=== PATIENT | female | born 1945 | race Caucasian/White ===

== ENCOUNTER → 2016-11-28 | Outpatient (REF) ==
[~2016-11-28] MED LIST: ASPIRIN 32325 MG/TAB PO; CRANBERRY450 MG PO; NORCO 325 MG-7.1 TAB PO; OMEGA-3 1000 MG1 CAP PO; PRINIVIL20 MG PO
== END ==
LOC: ZLAB.WCH 10:44
DX: Z01.89 Encounter for other specified special examinations (principal)

== ENCOUNTER 2017-03-21 11:51 | Day surgery (SDC) | payer MEDICARE, BC ==
[~2017-03-21] VITALS: Ht 160 cm; Wt 74.4 kg
[2017-03-21] VITALS (7 sets, daily range): BP systolic 77–123; BP diastolic 43–75; PULSE 65–87; TEMP 97.5–98.6
[~2017-03-21 11:51] MED LIST changes: -CRANBERRY450 MG PO; -NORCO 325 MG-7.1 TAB PO; -OMEGA-3 1000 MG1 CAP PO; -PRINIVIL20 MG PO
[2017-03-21] MEDS ORDERED: PRINIVIL20 MG PO (12:36)
[2017-03-21] MEDS ORDERED: CRANBERRY450 MG PO (12:37)
[2017-03-21] MEDS ORDERED: OMEGA-3 1000 MG1 CAP PO (12:38)
[2017-03-21] MEDS ORDERED: NORCO 325 MG-7.1 TAB PO (16:03)
== END 2017-03-21 17:25 | disposition home or self-care (01) ==
LOC: SDCO 11:51
DX: S52.531A Colles' fracture of right radius, initial encounter for closed fracture (principal); I10 Essential (primary) hypertension; M19.131 Post-traumatic osteoarthritis, right wrist; N39.0 Urinary tract infection, site not specified; G56.01 Carpal tunnel syndrome, right upper limb; Z90.710 Acquired absence of both cervix and uterus; Z81.8 Family history of other mental and behavioral disorders
CPT/HCPCS: C1713; J0690; J2250; J2704; J3010; J7120

== ENCOUNTER → 2018-12-11 | Outpatient (CLI) | payer MEDICARE, BC ==
[~2018-12-11] MED LIST changes: +CRANBERRY450 MG PO; +NORCO 325 MG-7.1 TAB PO; +OMEGA-3 1000 MG1 CAP PO; +PRINIVIL20 MG PO
== END ==
LOC: MHCPAIN 12:51
DX: G89.29 Other chronic pain (principal); M47.817 Spondylosis without myelopathy or radiculopathy, lumbosacral region; M54.16 Radiculopathy, lumbar region; M53.3 Sacrococcygeal disorders, not elsewhere classified
CPT/HCPCS: G0463

== ENCOUNTER 2018-12-17 12:38 | Outpatient (CLI) | payer MEDICARE, BC ==
[2018-12-17] VITALS (8 sets, daily range): BP systolic 123–143; BP diastolic 70–97; PULSE 53–70
[~2018-12-17] VITALS: Ht 160 cm; Wt 74.6 kg
[2018-12-17] MEDS ORDERED: ASPIRIN 81M81 MG/TA2 PO (12:51)
[2018-12-17] MEDS ORDERED: MOTRIN 400400 MG/TAB PO (12:52)
[2018-12-17] MEDS ORDERED: CEPHALEXIN250 M1 PO (12:53)
--- NOTE | 2018-12-17 16:31 | NUR ---
Discharge instructions given to pt.Pt verbalizes understanding.Pt escorted by this nurse.
== END 2018-12-17 16:35 | disposition home or self-care (01) ==
LOC: COL.RAD 12:38
DX: M48.061 Spinal stenosis, lumbar region without neurogenic claudication (principal); M43.16 Spondylolisthesis, lumbar region; M47.26 Other spondylosis with radiculopathy, lumbar region; M51.16 Intervertebral disc disorders with radiculopathy, lumbar region
CPT/HCPCS: Q9965

== ENCOUNTER → 2019-01-23 | Outpatient (CLI) | payer MEDICARE, BC ==
[~2019-01-23] MED LIST changes: +ASPIRIN 81M81 MG/TA2 PO; +CEPHALEXIN250 M1 PO; +MOTRIN 400400 MG/TAB PO
== END ==
LOC: MHCPAIN 12-26 15:09
DX: M47.817 Spondylosis without myelopathy or radiculopathy, lumbosacral region (principal); M54.16 Radiculopathy, lumbar region; M53.3 Sacrococcygeal disorders, not elsewhere classified; M48.061 Spinal stenosis, lumbar region without neurogenic claudication; G89.29 Other chronic pain
CPT/HCPCS: G0463; J1100; Q9967

== ENCOUNTER → 2019-02-05 | Outpatient (CLI) | payer MEDICARE, BC | LOC: MHCPAIN 07:58 | DX: G89.29 Other chronic pain (principal); M47.817 Spondylosis without myelopathy or radiculopathy, lumbosacral region; M54.16 Radiculopathy, lumbar region; M53.3 Sacrococcygeal disorders, not elsewhere classified; M48.061 Spinal stenosis, lumbar region without neurogenic claudication | CPT/HCPCS: G0463 ==

== ENCOUNTER → 2019-02-10 | Outpatient (CLI) | payer MEDICARE, BC | LOC: MHCPAIN 13:27 | DX: M47.817 Spondylosis without myelopathy or radiculopathy, lumbosacral region (principal); M54.16 Radiculopathy, lumbar region | CPT/HCPCS: J1100; Q9967 ==

== ENCOUNTER → 2019-02-26 | Outpatient (CLI) | payer MEDICARE, BC | LOC: MHCPAIN 07:45 | DX: G89.29 Other chronic pain (principal); M47.817 Spondylosis without myelopathy or radiculopathy, lumbosacral region; M54.16 Radiculopathy, lumbar region; M53.3 Sacrococcygeal disorders, not elsewhere classified; M48.061 Spinal stenosis, lumbar region without neurogenic claudication | CPT/HCPCS: G0463 ==

== ENCOUNTER → 2019-03-06 | Outpatient (CLI) | payer MEDICARE, BC | LOC: MHCPAIN 14:53 | DX: M47.817 Spondylosis without myelopathy or radiculopathy, lumbosacral region (principal); M54.16 Radiculopathy, lumbar region | CPT/HCPCS: J1100; Q9967 ==

== ENCOUNTER → 2019-03-18 | Outpatient (CLI) | payer MEDICARE, BC | LOC: MHCPAIN 08:02 | DX: G89.29 Other chronic pain (principal); M47.817 Spondylosis without myelopathy or radiculopathy, lumbosacral region; M54.16 Radiculopathy, lumbar region; M53.3 Sacrococcygeal disorders, not elsewhere classified; M48.061 Spinal stenosis, lumbar region without neurogenic claudication | CPT/HCPCS: G0463 ==